=== PATIENT | female | born 1995 | race Asian ===

== ENCOUNTER 2017-04-28 22:48 | Emergency (ER) | payer OTHER ==
[~2017-04-28] VITALS: Ht 165.1 cm; Wt 86.2 kg
[2017-04-28 23:00] VITALS: BP 108/62
[2017-04-28] MEDS ORDERED: Ketorolac 30mg Inj IV ONE (23:15)
[2017-04-28 23:47] LABS: BASOPHILS % (AUTO) 0.5 % (0.0-2.0); EOSINOPHILS % (AUTO) 0.5 % (0.0-3.0); HEMATOCRIT 44.5 % (37.0-47.0); HEMOGLOBIN 15.2 G/DL (12.0-16.0); LYMPHOCYTES % (AUTO) 24.2 % (20.0-45.0); MEAN CORPUSCULAR VOLUME 91 FL (80-99); MONOCYTES % (AUTO) 5.8 % (1.0-10.0); NEUTROPHILS % (AUTO) 69.1 % (45.0-75.0); PLATELET COUNT 444 K/UL (150-450); RED BLOOD COUNT 4.88 M/UL (4.20-5.40); RED CELL DISTRIBUTION WIDTH 11.4 % (11.6-14.8); WHITE BLOOD COUNT 14.8 K/UL (4.8-10.8)
[2017-04-28 23:52] LABS: BILIRUBIN, URINE NEGATIVE (NEGATIVE); GLUCOSE, URINE (UA) NEGATIVE (NEGATIVE); KETONES,URINE NEGATIVE (NEGATIVE); LEUKOCYTE ESTERASE ,URINE 3+ (NEGATIVE); NITRITE,URINE NEGATIVE (NEGATIVE); PH,URINE 5 (4.5-8.0); PROTEIN,URINE NEGATIVE (NEGATIVE); UROBILINOGEN,URINE NORMAL MG/DL (0.0-1.0)
[2017-04-28 23:59] LABS: ANION GAP 9 mmol/L (5-15); BLOOD UREA NITROGEN 15 mg/dL (7-18); CALCIUM 9.9 MG/DL (8.5-10.1); CARBON DIOXIDE 29 MMOL/L (21-32); CHLORIDE 100 MMOL/L (98-107); CREATININE 0.8 MG/DL (0.55-1.30); POTASSIUM 3.6 MMOL/L (3.5-5.1); SODIUM 138 MMOL/L (136-145)
[2017-04-29 00:03] LABS: APPEARANCE,URINE CLOUDY; COLOR,URINE YELLOW
[2017-04-29 00:04] LABS: ALANINE AMINOTRANSFERASE 45 U/L (12-78); ALBUMIN 4.2 G/DL (3.4-5.0); ALBUMIN/GLOBULIN RATIO 0.9 (1.0-2.7); ALKALINE PHOSPHATASE 98 U/L (46-116); ASPARTATE AMINO TRANSFERASE 14 U/L (15-37); BILIRUBIN,TOTAL 0.3 MG/DL (0.2-1.0)
[2017-04-29] MEDS ORDERED: CIPROFLOXACIN500 M2 ORAL (00:12)
--- NOTE | 2017-04-29 00:15 | Emergency Room Report ---
History of Present Illness General Chief Complaint: Abdominal Pain Source: Patient, Family Member Present Illness HPI 22-year-old female presents with 2 weeks of left flank pain someTimes radiates to front, no history associated fever or chills or dysuria, polyuria Family history of kidney stones pain is constant, not intermittent No previous abd/pelvic surgery Allergies: Coded Allergies: No Known Allergies (Unverified , 04/28/17) Patient History Past Medical History: none Past Surgical History: none Pertinent Family History: other - renal stones Last Menstrual Period: 04/09/17 Nursing Documentation-[facility] Past Medical History: No Stated History Review of Systems All Other Systems: negative except mentioned in HPI Physical Exam Vital Signs Date Time Temp Pulse Resp B/P (MAP) Pulse Ox O2 Delivery O2 Flow Rate FiO2 04/28/17 22:53 98.4 104 17 122/84 97 Room Air 98.4 Sp02 EP Interpretation: reviewed, normal General Appearance: normal inspection, well appearing, no apparent distress, alert, GCS 15, non-toxic, obese Head: normocephalic, atraumatic Eyes: bilateral eye PERRL, bilateral eye EOMI ENT: normal ENT inspection, hearing grossly normal, normal pharynx, no angioedema, normal voice, TMs + canals normal, uvula midline, moist mucus membranes Neck: normal inspection, full range of motion, supple, thyroid normal, no meningismus, no bony tend Respiratory: normal inspection, lungs clear, normal breath sounds, no rhonchi, no respiratory distress, no retraction, no accessory muscle use, no wheezing, speaking full sentences Cardiovascular #1: regular rate, rhythm, no edema, no JVD, normal capillary refill Gastrointestinal: normal inspection, normal bowel sounds, non tender, soft, no mass, no peritonitis, non-distended, no guarding, no hernia, no pulsatile mass Genitourinary: no CVA tenderness, CVA tenderness (L) Musculoskeletal: normal inspection, back normal, normal range of motion, no calf tenderness, pelvis stable, Faisal's Sign negative Neurologic: normal inspection, alert, oriented x3, responsive, program instructor III-XII nml as tested, motor strength/tone normal, cerebellar normal, normal gait, speech normal Psychiatric: normal inspection, judgement/insight normal, mood/affect normal, no suicidal/homicidal ideation, no delusions Skin: normal inspection, normal color, no rash Lymphatic: normal inspection, no adenopathy Medical Decision Making Diagnostic Impression: Primary Impression: Pyelonephritis ER Course Vital signs stable, afebrile lAbs with leukocytosis, high level of bacteria in urine Unlikely renal stones given no RBCs, duration of symptoms, and the fact the pain is constant with significant left CVAT Was given dose of Levaquin in the ER and Toradol with improvement symptoms Recommended close PMD follow-up Return to ER for worsening symptoms ER course: Patient has remained stable during ED stay. Disposition: Patient is to be discharged to home. Prescriptions given are ciprofloxacin Patient is instructed to follow up with their primary care doctor within 5 days. Strict return precautions discussed with patient such as fever, chills, worsening/severe pain, nausea, vomiting, which may indicate severe illness. Patient verbalizes understanding and agrees with plan. Please note that this Emergency Department Report was dictated using [employer]iusword processing supervisor technology software, occasionally this can lead to erroneous entry secondary to interpretation by the dictation equipment Last Vital Signs Date Time Temp Pulse Resp B/P (MAP) Pulse Ox O2 Delivery O2 Flow Rate FiO2 04/28/17 22:53 98.4 104 17 122/84 97 Room Air 98.4 Status: improved Disposition: HOME, SELF-CARE Condition: Improved Scripts Ciprofloxacin Hcl* (CIPROFLOXACIN HCL*) 500 Mg Tablet 500 MG ORAL Q12H for 7 Days, #14 TAB 0 Refills Prov: TR WATKINS M.D. 04/29/17 Patient Instructions: Pyelonephritis, Adult, [id number] Additional Instructions: Finish all antibiotics, drink plenty of fluid If you're unable to take antibiotics, or have vomiting or worsening pain please return to the ER TR WATKINS M.D. Apr 29, 2017 00:15
[2017-04-29 01:00] VITALS: BP 110/68
[2017-04-29 01:10] VITALS: BP 110/68
== END 2017-04-29 01:10 | disposition home or self-care (01) ==
LOC: EMR 23:25
DX: N12 Tubulo-interstitial nephritis, not specified as acute or chronic (principal)
CPT/HCPCS: 36415; 80053; 81003; 81025; 83690; 85025; 87086; 96361; 96374; 99284; J1885; J1956

== ENCOUNTER 2017-10-15 21:09 | Emergency (ER) | payer OTHER ==
[~2017-10-15] VITALS: Ht 165.1 cm; Wt 90.3 kg
[~2017-10-15 21:09] MED LIST: CIPROFLOXACIN500 M2 ORAL
[2017-10-15 21:40] VITALS: BP 112/79
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
[2017-10-15] MEDS ORDERED: IBUPROFEN600 MG ORAL (22:30)
[2017-10-15 22:40] VITALS: BP 112/79
== END 2017-10-15 22:40 | disposition home or self-care (01) ==
LOC: EMR 21:40
DX: M54.89 Other dorsalgia (principal); V43.62XA Car passenger injured in collision with other type car in traffic accident, initial encounter; Y92.488 Other paved roadways as the place of occurrence of the external cause
CPT/HCPCS: 99282